=== PATIENT | male | born 1975 | race Caucasian/White ===

== ENCOUNTER 2019-07-02 21:44 | Inpatient (IN) | payer SELFPAY ==
[~2019-07-02 21:44] MED LIST: Metoprolol Tartrate 5 MG/5 ML VIAL ONE; Nitroglycerin 50 MG/250 ML BOT ONE
[2019-07-02] MEDS ORDERED: Ondansetron PF 4 MG/2 ML Vial ONE (21:56)
[2019-07-02] MEDS ORDERED: Morphine 4 MG/ML VIAL ONE (21:56)
--- NOTE | 2019-07-02 22:21 | RAD ---
EXAM: CHEST ONE VIEW HISTORY: STEMI. Family reports patient had onset of back pain 2 days ago. Patient began experiencing chest bhupendra n today. COMPARISON: None FINDINGS: A pacing pad overlies the right chest. The cardiac silhouette and pulmonary vasculature are within no rmal limits for the portable technique of this study. The lungs are clear. The osseous structures are intact. IMPRESSION: No acute cardiopulmonary process.
[2019-07-02 22:24] LABS: #Basophils 0.1 thou/uL (0.0-0.2); #Eosinphils 0.1 thou/uL (0.0-0.7); #Lymphocytes 2.8 thou/uL (1.20-3.40); #Neutrophils 9.4 thou/uL (1.40-6.50); %Basophils 0.9 % (0.0-1.0); %Eosinophils 0.6 % (0.0-10.0); %Lymphocytes 20.8 % (21.0-51.0); %Monocytes 7.5 % (0.0-10.0); %Neutrophils 70.2 % (42.0-75.0); Hemoglobin 18.2 g/dL (14.0-18.0); Mean Corpuscular Hemoglobin 32.9 pg (27.0-31.0); Mean Platelet Volume 8.9 fL (7.4-10.4); Platelet Count 210 thou/uL (130-400); RBC Distribution Width 12.5 % (11.5-14.5); Red Blood Cell (RBC) Count 5.55 mill/uL (4.70-6.10); White Blood Cell (WBC) Count 13.3 thou/uL (4.8-10.8)
[2019-07-02] MEDS ORDERED: Midazolam HCl 2 mg/2 ml Vial ONE (22:28)
[2019-07-02] MEDS ORDERED: Fentanyl 100 MCG/2 ML VIAL ONE (22:29)
[2019-07-02] MEDS ORDERED: Adenosine 6 MG/2 ML VIAL ONE (22:31)
[2019-07-02] MEDS ORDERED: Verapamil 5 MG/2 ML VIAL ONE (22:31)
[2019-07-02] MEDS ORDERED: Nitroglycerin 100MG/250ML BOT 250 ML ONE (22:31)
[2019-07-02 22:35] LABS: ALT (SGPT) 28 U/L (8-55); AST (SGOT) 34 U/L (5-34); Albumin 4.7 g/dL (3.5-5.0); Alkaline Phosphatase 90 U/L (40-110); Anion Gap 18 mmol/L (10-20); BUN (Urea Nitrogen) 8 mg/dL (8.9-20.6); Bilirubin, Total 0.5 mg/dL (0.2-1.2); Calc. Creatinine Clearance 0 mL/min (70-130); Calcium 9.5 mg/dL (7.8-10.44); Carbon Dioxide 24 mmol/L (22-29); Chloride 101 mmol/L (98-107); Estimated GFR-MDRD 88; Globulin 3.1 g/dL (2.4-3.5); Glucose 135 mg/dL (70-105); Lipase 171 U/L (8-78); Potassium 3.7 mmol/L (3.5-5.1); Protein, Total 7.8 g/dL (6.0-8.3); Sodium 139 mmol/L (136-145)
[2019-07-02] MEDS ORDERED: Heparin (Artline) 500 ML ONE (22:43)
[2019-07-02] MEDS ORDERED: Heparin 10,000 UNITS/1 ML VIAL ONE (22:43)
[2019-07-02] MEDS ORDERED: Clopidogrel Bisulfate 300 MG TAB ONE (22:46)
--- NOTE | 2019-07-02 22:52 | CON ---
DATE OF CONSULTATION: 07/02/2019 REASON FOR CONSULTATION: Acute MD. HISTORY: Mr. Mathews is a very pleasant 43-year-old gentleman who recently presented with chest pain. His sister, who is the map compiler (he is deaf), states he began having pain 2 days ago. It waxed and waned. It became persistent today. He had associated diaphoresis. No other ameliorating, exacerbating, or precipitating factors present. PAST MEDICAL HISTORY: HIV. MEDICATIONS: Currently not available. ALLERGIES: UNKNOWN HIV MEDICATION. SURGERIES: None. SOCIAL HISTORY: He is not currently . No children. He is visiting from [facility]. REVIEW OF SYSTEMS: 10-point review of systems is reviewed and as above, otherwise negative. PHYSICAL EXAMINATION: VITAL SIGNS: Blood pressure 150/100, respirations 20, heart rate 70. GENERAL: Adipose mass present to the posterior aspect of his neck, which is an allergic reaction, per sister, from HIV medication. NEUROLOGIC: The patient is alert and oriented x3 with no focal neurologic deficits. HEENT: Sclerae without icterus. Mouth has moist mucous membranes with normal pallor. NECK: No JVD. Carotid upstroke brisk. No bruits bilaterally. LUNGS: Clear to auscultation with unlabored respirations. BACK: No scoliosis or kyphosis. CARDIAC: Regular rate and rhythm with normal S1 and S2. No S3 or S4 noted. No significant rubs, murmurs, thrills, or gallops noted throughout the precordium. PMI is not displaced. There is no parasternal heave. ABDOMEN: Soft, nontender, nondistended. No peritoneal signs present. No hepatosplenomegaly. No abnormal striae. EXTREMITIES: 2+ femoral and 2+ dorsalis pedis pulses. No cyanosis, clubbing, or edema. SKIN: No gross abnormalities. DIAGNOSTIC STUDIES: EKG showed normal sinus rhythm with ST-T wave changes suggesting acute myocardial infarction. IMPRESSION: Acute myocardial infarction. RECOMMENDATIONS: I discussed how to proceed in full detail with the daughter. She interpreted. I discussed procedure in full detail. Risks included not limited to the following: I discussed the procedure in full detail with the patient. The risks of the procedure were also discussed. The risks of the procedure include but are not limited to the following: , stroke, MD, need for emergency surgery, loss of limb, bleeding, and infection, as well as a reaction to the dye causing kidney failure and needing long-term dialysis. I also discussed the risks of PCI to include all of the above including coronary dissection and perforation in addition to acute stent thrombosis and restenosis. All questions about the procedure were answered. Given the above, the patient agreed to proceed with coronary angiography and possible PCI. All questions were answered. Also discussed bare-metal versus drug-coated stent placement. There were no contraindications. We will proceed if needed. Further recommendations pending the above. Job ID: [id number]
[2019-07-02 23:15] LABS: CKMB 11.6 ng/mL (0-6.6)
[2019-07-02] MEDS ORDERED: Heparin (Artline) 1,000 ML ONE (23:15)
[2019-07-02] MEDS ORDERED: Lidocaine 1% (PF) 30 ML VIAL ONE (23:15)
[2019-07-02 23:23] LABS: CK (CPK) 110 U/L (30-200)
[2019-07-02 23:36] VITALS: BMI 28.3
[2019-07-02] MEDS: Sodium Chloride 0.9% 1,000 ML IV SCH (23:42)
[2019-07-02 23:55] LABS: CKMB 44.9 ng/mL (0-6.6); Troponin I 5.566 ng/mL (< 0.028)
[2019-07-03] MEDS ORDERED: Nitroglycerin 50 MG/250 ML BOT 250 ML IVPB SCH (01:45)
[2019-07-03] MEDS ORDERED: Morphine 2 MG/ML SYRINGE SLOW IVP PRN (04:07)
[2019-07-03] MEDS ORDERED: Morphine 4 MG/ML VIAL ONE (04:07)
[2019-07-03 04:08] LABS: #Eosinphils 0.1 thou/uL (0.0-0.7); #Lymphocytes 2.5 thou/uL (1.20-3.40); #Monocytes 1.1 thou/uL (0.11-0.59); #Neutrophils 9.1 thou/uL (1.40-6.50); %Basophils 0.3 % (0.0-1.0); %Eosinophils 0.6 % (0.0-10.0); %Lymphocytes 19.5 % (21.0-51.0); %Monocytes 8.3 % (0.0-10.0); %Neutrophils 71.4 % (42.0-75.0); Hemoglobin 15.8 g/dL (14.0-18.0); Mean Corpuscular HGB CONC 35.2 g/dL (32.0-36.0); Mean Corpuscular Hemoglobin 32.8 pg (27.0-31.0); Mean Corpuscular Volume 93.3 fL (78.0-98.0); Mean Platelet Volume 8.1 fL (7.4-10.4); Platelet Count 195 thou/uL (130-400); RBC Distribution Width 12.4 % (11.5-14.5); Red Blood Cell (RBC) Count 4.81 mill/uL (4.70-6.10); White Blood Cell (WBC) Count 12.7 thou/uL (4.8-10.8)
[2019-07-03] MEDS: Morphine 4 MG/ML VIAL SLOW IVP PRN ×3 (04:12→12:24)
[2019-07-03 04:31] LABS: ALT (SGPT) 35 U/L (8-55); AST (SGOT) 119 U/L (5-34); Albumin 4.2 g/dL (3.5-5.0); Alkaline Phosphatase 80 U/L (40-110); Anion Gap 13 mmol/L (10-20); BUN (Urea Nitrogen) 9 mg/dL (8.9-20.6); Bilirubin, Total 0.5 mg/dL (0.2-1.2); Calc. Creatinine Clearance 151 mL/min (70-130); Calcium 8.6 mg/dL (7.8-10.44); Carbon Dioxide 22 mmol/L (22-29); Chloride 107 mmol/L (98-107); Estimated GFR-MDRD Greater than 90; Globulin 2.4 g/dL (2.4-3.5); Glucose 114 mg/dL (70-105); Potassium 3.7 mmol/L (3.5-5.1); Protein, Total 6.6 g/dL (6.0-8.3); Sodium 138 mmol/L (136-145)
[2019-07-03 06:02] LABS: CKMB 144.4 ng/mL (0-6.6)
[2019-07-03] MEDS ORDERED: Carvedilol 3.125 MG TAB PO SCH ×2 (08:00→11:00)
[2019-07-03] MEDS ORDERED: Lisinopril 2.5 MG TAB PO SCH (09:00)
[2019-07-03] MEDS ORDERED: Prevnar 13-Val Conj/PF 0.5 ML SYRINGE IM ONE (09:00)
[2019-07-03] MEDS: Aspirin Chewable 81 MG TAB PO SCH (09:01)
[2019-07-03] MEDS: Clopidogrel Bisulfate 75 MG TAB PO SCH (09:01)
[2019-07-03] MEDS: Sodium Chloride 0.9% 1,000 ML IV SCH (09:30)
--- NOTE | 2019-07-03 10:46 | PDOC.CPN ---
- Subjective Date: 07/03/19 Time: 10:46 Interval history: Pt with mild to moderate CP noted after the procedure. LIkey d/t stretch vs jailed vessel vs plavix. Pt CP free now. Doing well. Communicated via notes. BP elevated - Objective Allergies/Adverse Reactions: Allergies Allergy/AdvReac Type Severity Reaction Status Date / Time NSAIDS (Non-Steroidal AdvReac Unknown Verified 07/03/19 00:21 Anti-Inflamma Visit Medications: Current Medications Aspirin (Aspirin Chewable) 81 mg PO DAILY [facility] Last Admin: 07/03/19 09:01 Dose: 81 mg Clopidogrel Bisulfate (Plavix) 75 mg PO DAILY [facility] Last Admin: 07/03/19 09:01 Dose: 75 mg Nitroglycerin/Dextrose (Nitroglycerin 50 Mg/250 Ml Bot) 250 mls @ 0 mls/hr IVPB INF [place]; Protocol Morphine Sulfate (Morphine) 2 mg SLOW IVP Q2H PRN PRN Reason: MILD - MOD CHEST PAIN Morphine Sulfate (Morphine) 4 mg SLOW IVP Q2H PRN PRN Reason: MOD - SEVERE CHEST PAIN Last Admin: 07/03/19 06:19 Dose: 4 mg Sodium Chloride (Flush - Normal Saline) 10 ml IVF PRN PRN PRN Reason: Saline Flush Vital Signs & Weight: Vital Signs Temp Pulse BP Pulse Ox 07/03/19 09:00 97 132/79 07/03/19 07:00 98.4 F 07/03/19 04:00 98.1 F 07/03/19 00:00 98.1 F 07/02/19 23:35 98.1 F 07/02/19 23:15 100 Weight 186 lb 15.232 oz - Quality Measures Condition: Coronary Artery Disease CV meds: Beta Britta: Yes, PILY/ARB: Yes, Statin: Yes, ASA: Yes, Plavix/Effient/ Brilinta: Yes - Physical Exam General: alert & oriented x3 HEENT: mucus membranes moist Neck: supple neck Cardiac: regular rate and rhythm, no murmur Lungs: clear to auscultation Neuro: cranial nerve 2-12 intact - Labs Result Diagrams: 07/03/19 03:46 07/03/19 03:46 Troponin/CKMB CK-MB (CK-2) 144.4 ng/mL (0-6.6) H* 07/03/19 05:14 Troponin I 29.930 ng/mL (< 0.028) H* 07/03/19 05:14 - Assessment/Plan Assessment/Plan: A/P: AMI HIV Discussed with Dr. James Check CD4 count, viral load Take antiretroviral from home Add statin Increase ACEI, BB On ASA, plavix
[2019-07-03] MEDS ORDERED: Lisinopril 5 MG TAB PO SCH (11:00)
[2019-07-03] MEDS: Carvedilol 3.125 MG TAB PO SCH (18:40)
[2019-07-03] MEDS: Atorvastatin Calcium 40 MG TAB PO SCH (21:10)
[2019-07-03] MEDS: BIKTARVY PO SCH (21:14)
[2019-07-04] MEDS: Aspirin Chewable 81 MG TAB PO SCH (07:59)
[2019-07-04] MEDS: Carvedilol 3.125 MG TAB PO SCH ×2 (07:59→16:23)
[2019-07-04] MEDS: Clopidogrel Bisulfate 75 MG TAB PO SCH (07:59)
[2019-07-04] MEDS: Lisinopril 10 MG TAB PO SCH (08:00)
--- NOTE | 2019-07-04 09:54 | PDOC.CPN ---
- Subjective Date: 07/04/19 Time: 12:22 Interval history: Doing well No complaints - Objective Allergies/Adverse Reactions: Allergies Allergy/AdvReac Type Severity Reaction Status Date / Time NSAIDS (Non-Steroidal AdvReac Unknown Verified 07/03/19 00:21 Anti-Inflamma Visit Medications: Current Medications Aspirin (Aspirin Chewable) 81 mg PO DAILY [facility] Last Admin: 07/04/19 07:59 Dose: 81 mg Atorvastatin Calcium (Lipitor) 40 mg PO [facility] Last Admin: 07/03/19 21:10 Dose: 40 mg Carvedilol (Coreg) 6.25 mg PO BID-[facility] Last Admin: 07/04/19 07:59 Dose: 6.25 mg Clopidogrel Bisulfate (Plavix) 75 mg PO DAILY [facility] Last Admin: 07/04/19 07:59 Dose: 75 mg Clopidogrel Bisulfate (Plavix) 75 mg PO DAILY [facility] Nitroglycerin/Dextrose (Nitroglycerin 50 Mg/250 Ml Bot) 250 mls @ 0 mls/hr IVPB INF [facility]; Protocol Lisinopril (Zestril) 10 mg PO DAILY [facility] Last Admin: 07/04/19 08:00 Dose: 10 mg Morphine Sulfate (Morphine) 2 mg SLOW IVP Q2H PRN PRN Reason: MILD - MOD CHEST PAIN Morphine Sulfate (Morphine) 4 mg SLOW IVP Q2H PRN PRN Reason: MOD - SEVERE CHEST PAIN Last Admin: 07/03/19 12:24 Dose: 4 mg Biktarvy Patient's (Home Medication) 1 each PO [facility] Last Admin: 07/03/19 21:14 Dose: 1 each Sodium Chloride (Flush - Normal Saline) 10 ml IVF PRN PRN PRN Reason: Saline Flush Vital Signs & Weight: Vital Signs Temp BP Pulse Ox 07/04/19 08:00 155/106 H 97 07/04/19 07:00 98.6 F 07/04/19 04:00 98.1 F 07/04/19 00:00 98.7 F Weight 186 lb 15.232 oz - Quality Measures Condition: Coronary Artery Disease CV meds: Beta Britta: Yes, PILY/ARB: Yes, Statin: Yes, ASA: Yes, Plavix/Effient/ Brilinta: Yes - Physical Exam General: alert & oriented x3, appears well HEENT: mucus membranes moist Neck: supple neck Cardiac: regular rate and rhythm Lungs: clear to auscultation Neuro: grossly intact Extremities: 1+ LE edema - Labs Result Diagrams: 07/03/19 03:46 07/03/19 03:46 Troponin/CKMB CK-MB (CK-2) 144.4 ng/mL (0-6.6) H* 07/03/19 05:14 Troponin I 29.930 ng/mL (< 0.028) H* 07/03/19 05:14 - Assessment/Plan Assessment/Plan: AMI HIV tobacco abuse On ASA, BB, plavix ACEI, statin Ambulate Anticipate home in am
[2019-07-04] MEDS ORDERED: Clopidogrel Bisulfate 75 MG TAB PO SCH (10:00)
[2019-07-04] MEDS: Atorvastatin Calcium 40 MG TAB PO SCH (21:57)
[2019-07-04] MEDS: BIKTARVY PO SCH (21:58)
[2019-07-05 07:30] VITALS: TEMP 97.7
[2019-07-05] MEDS: Lisinopril 10 MG TAB PO SCH (08:33)
[2019-07-05] MEDS: Carvedilol 3.125 MG TAB PO SCH (08:33)
[2019-07-05] MEDS: Aspirin Chewable 81 MG TAB PO SCH (08:33)
[2019-07-05] MEDS: Clopidogrel Bisulfate 75 MG TAB PO SCH (08:34)
--- NOTE | 2019-07-05 10:21 | DIS ---
DATE OF ADMISSION: 07/02/2019 DATE OF DISCHARGE: 07/05/2019 DISCHARGE DIAGNOSIS: Acute myocardial infarction. CONSULTATIONS: None. PROCEDURE: Coronary angiography with left heart catheterization and stent placement to the LAD. HOSPITAL COURSE: Mr. Mathews is very pleasant 43-year-old gentleman, who recently presented with acute myocardial infarction. He underwent successful stent placement on 07/05/2019. He was evaluated in the ICU over the next 24 hours and did well. He was transferred to telemetry monitoring with ambulation and no recurrence of chest pain or pressure. DISCHARGE MEDICATIONS: 1. Aspirin 81 q.a.m. 2. Atorvastatin 40 at bedtime. 3. Carvedilol 6.25 b.i.d. 4. Plavix 75 daily. 5. Lisinopril 10 daily. 6. Previous anti-retroviral from home. CONDITION AT DISCHARGE: Stable. FOLLOWUP: Follow up with Laxmi Ojeda in the next 1 to 2 weeks. Job ID: [id number]
[2019-07-05 15:42] VITALS: BP 114/73
--- NOTE | 2019-07-05 18:59 | EKG ---
Test Reason : Blood Pressure : / mmHG Vent. Rate : 096 BPM Atrial Rate : 096 BPM P-R Int : 130 ms QRS Dur : 088 ms QT Int : 408 ms P-R-T Axes : 060 053 064 degrees QTc Int : 515 ms Normal sinus rhythm Possible Left atrial enlargement Anteroseptal infarct , possibly acute T wave abnormality, consider lateral ischemia Prolonged QT ACUTE AL / STEMI Abnormal ECG No previous ECGs available Confirmed by DANIEL KELLY, DR. Ambriz ([id number]) on 07/05/2019 6:59:27 PM Referred By: TAM Confirmed By:DR. Katina SANCHEZ MD
== END 2019-07-05 13:40 | disposition home or self-care (01) | DRG 247 ==
LOC: ERS 21:44 → CCU 23:12 → 2NO 07-04 13:06
PROVIDERS: ADMIT Internal Medicine Cardiovascular Disease; ATTEND Internal Medicine Cardiovascular Disease
PROC: 027034Z Dilation of Coronary Artery, One Artery with Drug-eluting Intraluminal Device, Percutaneous Approach (ICD-10-PCS; principal; 2019-07-02)
PROC: 02C03ZZ Extirpation of Matter from Coronary Artery, One Artery, Percutaneous Approach (ICD-10-PCS; 2019-07-02)
PROC: 4A023N7 Measurement of Cardiac Sampling and Pressure, Left Heart, Percutaneous Approach (ICD-10-PCS; 2019-07-02)
PROC: B2011ZZ Plain Radiography of Multiple Coronary Arteries using Low Osmolar Contrast (ICD-10-PCS; 2019-07-02)
DX: I21.9 Acute myocardial infarction, unspecified (principal); F17.200 Nicotine dependence, unspecified, uncomplicated; Z79.899 Other long term (current) drug therapy; Z79.82 Long term (current) use of aspirin; Z88.5 Allergy status to narcotic agent; Z21 Asymptomatic human immunodeficiency virus [HIV] infection status
CPT/HCPCS: 36415; 71045; 76942; 80053; 82550; 82553; 83690; 84484; 85025; 85347; 92941; 93005; 93010; 93306; 93454; 93798; 96365; 96375; C1725; C1769; C1887; C9606; J0153; J1644; J2001; J2250; J2270; J2405; J3010